=== PATIENT | male | born 1980 | race African-American/Black ===

== ENCOUNTER 2024-11-03 12:42 | Emergency (ER) | payer OTHER ==
[~2024-11-03] VITALS: Ht 193 cm; Wt 117.9 kg
[2024-11-03] MEDS: CLONIDINE HCL 0.1 MG TAB PO ONE (13:53)
[2024-11-03 15:05] VITALS: PULSE 66
[2024-11-03] MEDS: LABETALOL HCL 5 MG/ML 20ML VIAL IV STA (15:05)
[2024-11-03 17:09] VITALS: BP 199/121
[2024-11-03] MEDS: HYDRALAZINE HCL 20 MG/ML VIAL IV ONE (17:09)
[2024-11-03] MEDS: ACETAMINOPHEN 325 MG TAB PO ONE (17:10)
[2024-11-03 17:11] VITALS: PULSE 55; RESP 16; TEMP 98.2; O2SAT 100
== END 2024-11-03 17:16 | disposition other institution (70) ==
LOC: FSED 13:27
DX: R51.9 Headache, unspecified (principal); H53.8 Other visual disturbances; H05.20 Unspecified exophthalmos; I16.0 Hypertensive urgency; I10 Essential (primary) hypertension; R94.31 Abnormal electrocardiogram [ECG] [EKG]
CPT/HCPCS: 70450; 93005; 99284; J0360; J3490